=== PATIENT | female | born 1965 | race Caucasian/White ===

== ENCOUNTER → 2016-10-06 | Outpatient (REF) | payer BC | LOC: M SFHCPLAZ 14:49 | PROVIDERS: ATTEND Nurse Practitioner Family | DX: J44.9 Chronic obstructive pulmonary disease, unspecified (principal); Z72.0 Tobacco use; E55.9 Vitamin D deficiency, unspecified; Z53.9 Procedure and treatment not carried out, unspecified reason ==

== ENCOUNTER → 2016-11-01 | Outpatient (CLI) | payer BC | LOC: M LAB 10:58 | PROVIDERS: ATTEND Nurse Practitioner Family | DX: J44.9 Chronic obstructive pulmonary disease, unspecified (principal) ==

== ENCOUNTER → 2016-11-01 | Outpatient (CLI) | payer BC | LOC: M LAB 10:44 | PROVIDERS: ATTEND Psychiatry & Neurology Neurology | DX: J44.9 Chronic obstructive pulmonary disease, unspecified (principal); Z72.0 Tobacco use; E55.9 Vitamin D deficiency, unspecified ==

== ENCOUNTER 2017-03-22 10:53 | Emergency (ER) | payer OTHER, BC ==
[~2017-03-22] VITALS: Ht 152.4 cm; Wt 59.1 kg
[2017-03-22 10:55] VITALS: BP 114/74
[2017-03-22] MEDS ORDERED: DEPA1TAB3 PO (11:02)
[2017-03-22] MEDS ORDERED: REME45TA PO (11:02)
[2017-03-22] MEDS ORDERED: LORA10CA PO (11:02)
[2017-03-22] MEDS ORDERED: SING10TA32 PO (11:02)
[2017-03-22] MEDS ORDERED: ALBU17IN INH (11:02)
[2017-03-22] MEDS ORDERED: ACETAMINOPHEN 325 MG TAB PO ONE (11:30)
--- NOTE | 2017-03-22 12:00 | REP ---
LEFT WRIST, FOUR VIEWS: HISTORY: Trauma. COMPARISON: 08/31/2013 There is no acute fracture or dislocation. The joint spaces are normal in appearance. IMPRESSION: There is no acute fracture or dislocation. Signed by Lavon Hidalgo MD 03/22/2017 12:02 P
== END 2017-03-22 11:55 | disposition home or self-care (01) ==
LOC: M ED 10:53
DX: S63.502A Unspecified sprain of left wrist, initial encounter (principal); Y04.8XXA Assault by other bodily force, initial encounter; Y92.129 Unspecified place in nursing home as the place of occurrence of the external cause; Y93.F9 Activity, other caregiving; Y99.0 Civilian activity done for income or pay; J45.909 Unspecified asthma, uncomplicated; F17.210 Nicotine dependence, cigarettes, uncomplicated; Z79.899 Other long term (current) drug therapy

== ENCOUNTER → 2018-02-15 | Outpatient (REF) | payer BC ==
[2018-02-15 17:33] LABS: HEMATOCRIT 41.9 % (36.0-47.0); HEMOGLOBIN 14.1 g/dl (12.0-15.5); MEAN CORPUSCULAR HEMOGLOBIN 32.9 pg (27.0-33.0); MEAN CORPUSCULAR HGB CONC 33.7 g/dl (32.0-36.5); MEAN CORPUSCULAR VOLUME 97.9 fl (80.0-96.0); PLATELET COUNT, AUTOMATED 335 10^3/uL (150-450); RED BLOOD COUNT 4.28 10^6/uL (4.00-5.40); RED CELL DISTRIBUTION WIDTH 11.9 % (11.5-14.5); WHITE BLOOD COUNT 6.3 10^3/uL (4.0-10.0)
[2018-02-15 17:45] LABS: MAGNESIUM LEVEL 2.1 MG/DL (1.8-2.4)
[2018-02-15 18:04] LABS: TOTAL 25(OH) VITAMIN D 50.1 NG/ML (30.0-100.0); VITAMIN B12 LEVEL 490 PG/ML
[2018-02-15 18:05] LABS: FOLATE 14.2 NG/ML
== END ==
LOC: M SFHCPLAZ 14:24
DX: K21.9 Gastro-esophageal reflux disease without esophagitis (principal); E55.9 Vitamin D deficiency, unspecified

== ENCOUNTER → 2018-05-01 | Outpatient (REF) | payer BC ==
[2018-05-01 16:26] LABS: TOTAL 25(OH) VITAMIN D 33.4 NG/ML (30.0-100.0)
== END ==
LOC: M SFHCPLAZ 13:40
DX: E55.9 Vitamin D deficiency, unspecified (principal)
CPT/HCPCS: 82306

== ENCOUNTER → 2018-07-06 | Outpatient (REF) | payer BC ==
[2018-07-07 12:48] LABS: HIV 1&2 SCREEN CENTAUR NEGATIVE (NEGATIVE)
[2018-07-07 12:48] LABS: HEPATITIS C VIRUS ABY INDEX 0.1 INDEX (<0.8)
== END ==
LOC: M SFHCPLAZ 11:48
DX: Z11.3 Encounter for screening for infections with a predominantly sexual mode of transmission (principal)
CPT/HCPCS: 86803

== ENCOUNTER → 2018-07-06 | Outpatient (REF) | payer BC ==
[2018-07-06 16:41] LABS: CHLAMYDIA DNA AMPLIFICATION NEGATIVE (NEGATIVE); GC DNA AMPLIFICATION NEGATIVE (NEGATIVE)
[2018-07-11 14:17] LABS: HPV HYBRID CAPTURE II Negative (Negative)
== END ==
LOC: M SFHCPLAZ 13:36
DX: Z12.4 Encounter for screening for malignant neoplasm of cervix (principal); A59.01 Trichomonal vulvovaginitis; R87.610 Atypical squamous cells of undetermined significance on cytologic smear of cervix (ASC-US); Z11.3 Encounter for screening for infections with a predominantly sexual mode of transmission
CPT/HCPCS: 87591

== ENCOUNTER → 2018-11-16 | Outpatient (REF) | payer BC ==
[~2018-11-16] MED LIST: ALBU17IN INH; DEPA1TAB3 PO; LORA10CA PO; REME45TA PO; SING10TA32 PO
[2018-11-16 19:33] LABS: ALBUMIN 3.8 GM/DL (3.2-5.2); ALT/SGPT 22 U/L (12-78); BILIRUBIN,TOTAL 0.1 MG/DL (0.2-1.0); BLOOD UREA NITROGEN 18 MG/DL (7-18); CALCIUM LEVEL 8.8 MG/DL (8.5-10.1); CARBON DIOXIDE LEVEL 30 MEQ/L (21-32); CHLORIDE LEVEL 109 MEQ/L (98-107); CREATININE FOR GFR 0.74 MG/DL (0.55-1.30); GLOMERULAR FILTRATION RATE > 60.0 (>51); GLUCOSE, FASTING 75 MG/DL (70-100); POTASSIUM SERUM 4.5 MEQ/L (3.5-5.1); SODIUM LEVEL 143 MEQ/L (136-145); TOTAL PROTEIN 6.8 GM/DL (6.4-8.2)
[2018-11-16 19:38] LABS: TOTAL 25(OH) VITAMIN D 46.4 NG/ML (30.0-100.0)
== END ==
LOC: M SFHCPLAZ 15:49
PROVIDERS: ATTEND Nurse Practitioner Family
DX: J44.9 Chronic obstructive pulmonary disease, unspecified (principal); E55.9 Vitamin D deficiency, unspecified

== ENCOUNTER 2019-09-04 10:49 | Emergency (ER) | payer OTHER, BC ==
[~2019-09-04] VITALS: Ht 152.4 cm; Wt 59.8 kg
[2019-09-04 10:49] VITALS: BP 125/74
--- NOTE | 2019-09-04 14:10 | REP ---
Clinical: Trauma. Fall. Technique: Single AP view of the pelvis. Findings: Age-related changes noted. No acute fracture or dislocation. Impression: No acute fracture dislocation. Electronically Signed by Salazar Blancas MD 09/04/2019 02:02 P
--- NOTE | 2019-09-04 14:11 | REP ---
Clinical: Fall. Pain. Technique: AP, lateral, bilateral oblique and coned-down views of the lumbosacral spine. Findings: Alignment and lordosis maintained. Vertebral bodies are intact. No acute fracture / compression injury or subluxation. Minimal disc space narrowing at L5-S1 noted. Impression: No acute fracture / compression injury or subluxation. Electronically Signed by Salazar Blancas MD 09/04/2019 02:03 P
[2019-09-04] MEDS ORDERED: NAPR-837 PO (14:18)
== END 2019-09-04 14:28 | disposition home or self-care (01) ==
LOC: M ED 10:49
DX: S30.0XXA Contusion of lower back and pelvis, initial encounter (principal); S33.9XXA Sprain of unspecified parts of lumbar spine and pelvis, initial encounter; W00.0XXA Fall on same level due to ice and snow, initial encounter; Y92.89 Other specified places as the place of occurrence of the external cause; Y99.0 Civilian activity done for income or pay; J45.909 Unspecified asthma, uncomplicated; Z78.0 Asymptomatic menopausal state; Z79.899 Other long term (current) drug therapy

== ENCOUNTER → 2019-11-19 | Outpatient (REF) ==
[~2019-11-19] MED LIST changes: +NAPR-837 PO
== END ==
LOC: M LAB 14:47
PROVIDERS: ATTEND Nurse Practitioner Adult Health
DX: Z00.00 Encounter for general adult medical examination without abnormal findings (principal)

== ENCOUNTER → 2020-01-31 | Outpatient (REF) | payer BC ==
[2020-01-31 17:05] LABS: BASO % 0.3 % (0.0-1.0); EOS # 0.1 10^3/uL (0.0-0.5); EOS % 0.6 % (0.0-3.0); HEMATOCRIT 45.4 % (36.0-47.0); HEMOGLOBIN 15.2 g/dl (12.0-15.5); LYMPH # 2.6 10^3/uL (1.5-5.0); LYMPH % 29.4 % (24.0-44.0); MEAN CORPUSCULAR HEMOGLOBIN 32.1 pg (27.0-33.0); MEAN CORPUSCULAR HGB CONC 33.5 g/dl (32.0-36.5); MEAN CORPUSCULAR VOLUME 95.8 fl (80.0-96.0); MONO # 0.6 10^3/uL (0.0-0.8); MONO % 7.2 % (0.0-5.0); NEUTROPHILS # 5.5 10^3/uL (1.5-8.5); NEUTROPHILS % 62.3 % (36.0-66.0); PLATELET COUNT, AUTOMATED 322 10^3/uL (150-450); RED BLOOD COUNT 4.74 10^6/uL (4.00-5.40); WHITE BLOOD COUNT 8.8 10^3/uL (4.0-10.0)
[2020-01-31 18:03] LABS: ALBUMIN 3.9 GM/DL (3.2-5.2); ALT/SGPT 24 U/L (12-78); BILIRUBIN,TOTAL 0.3 MG/DL (0.2-1.0); BLOOD UREA NITROGEN 10 MG/DL (7-18); CALCIUM LEVEL 9.6 MG/DL (8.5-10.1); CARBON DIOXIDE LEVEL 29 MEQ/L (21-32); CHLORIDE LEVEL 110 MEQ/L (98-107); CREATININE FOR GFR 0.72 MG/DL (0.55-1.30); FREE T4 1.09 NG/DL (0.76-1.46); GLOMERULAR FILTRATION RATE > 60.0 (>51); GLUCOSE, FASTING 88 MG/DL (70-100); POTASSIUM SERUM 4.7 MEQ/L (3.5-5.1); SODIUM LEVEL 144 MEQ/L (136-145); THYROID STIMULATING HORMONE 0.433 uIU/ML (0.358-3.740); TOTAL 25(OH) VITAMIN D 32.2 NG/ML (30.0-100.0); TOTAL PROTEIN 7.1 GM/DL (6.4-8.2); VALPROIC ACID (DEPAKOTE) < 3.0 UG/ML (50.0-100.0)
== END ==
LOC: M SFHCPLAZ 15:36
PROVIDERS: ATTEND Nurse Practitioner Family
DX: J44.9 Chronic obstructive pulmonary disease, unspecified (principal); F32.9 Major depressive disorder, single episode, unspecified; G43.009 Migraine without aura, not intractable, without status migrainosus; E55.9 Vitamin D deficiency, unspecified; L73.2 Hidradenitis suppurativa

== ENCOUNTER → 2020-03-17 | Outpatient (CLI) | payer BC ==
[2020-03-17 19:23] LABS: BASO % 0.4 % (0.0-1.0); EOS # 0.1 10^3/uL (0.0-0.5); EOS % 1.1 % (0.0-3.0); HEMATOCRIT 44.1 % (36.0-47.0); HEMOGLOBIN 14.7 g/dl (12.0-15.5); LYMPH % 25.4 % (24.0-44.0); MEAN CORPUSCULAR HEMOGLOBIN 32.3 pg (27.0-33.0); MEAN CORPUSCULAR HGB CONC 33.3 g/dl (32.0-36.5); MEAN CORPUSCULAR VOLUME 96.9 fl (80.0-96.0); MONO # 0.5 10^3/uL (0.0-0.8); MONO % 5.7 % (0.0-5.0); NEUTROPHILS # 5.3 10^3/uL (1.5-8.5); NEUTROPHILS % 67.1 % (36.0-66.0); PLATELET COUNT, AUTOMATED 306 10^3/uL (150-450); RED BLOOD COUNT 4.55 10^6/uL (4.00-5.40); WHITE BLOOD COUNT 7.9 10^3/uL (4.0-10.0)
[2020-03-17 20:08] LABS: ALBUMIN 3.8 GM/DL (3.2-5.2); ALT/SGPT 22 U/L (12-78); BILIRUBIN,TOTAL 0.3 MG/DL (0.2-1.0); BLOOD UREA NITROGEN 12 MG/DL (7-18); CALCIUM LEVEL 9.2 MG/DL (8.5-10.1); CARBON DIOXIDE LEVEL 32 MEQ/L (21-32); CHLORIDE LEVEL 109 MEQ/L (98-107); FREE T4 0.87 NG/DL (0.76-1.46); GLOMERULAR FILTRATION RATE > 60.0 (>51); GLUCOSE, FASTING 83 MG/DL (70-100); LIPASE 75 U/L (73-393); POTASSIUM SERUM 4.1 MEQ/L (3.5-5.1); SODIUM LEVEL 143 MEQ/L (136-145); THYROID STIMULATING HORMONE 0.475 uIU/ML (0.358-3.740); TOTAL PROTEIN 6.6 GM/DL (6.4-8.2)
== END ==
LOC: M WUC 15:43
PROVIDERS: ATTEND Physician Assistant
DX: R10.9 Unspecified abdominal pain (principal)

== ENCOUNTER → 2020-03-21 | Outpatient (CLI) | payer BC ==
[~2020-03-21] MED LIST changes: +GASTROGRAFIN SOLUTION 30ML (Q9963) As Ordered ONE; +ISOVUE-370 76% 100ML VIAL As Ordered ONE
--- NOTE | 2020-04-22 09:55 | REP ---
CONTRAST-ENHANCED CT OF THE ABDOMEN AND PELVIS: HISTORY: Generalized abdominal pain and tenderness. TECHNIQUE: Axial contrast-enhanced images from the lung bases to the pubic symphysis using oral (per protocol) and 100 cc Isovue 370 intravenous contrast material with coronal and sagittal reformations. COMPARISON: None. FINDINGS: Lung bases suggest mild/moderate emphysematous changes and linear scarring at the right anterior base. The visualized heart and pericardium are grossly normal. The liver, spleen, pancreas, gallbladder, bilateral adrenal glands and kidneys are normal. The enteric system demonstrate mild mucosal thickening to the ascending and proximal transverse colon raising the possibility of a mild colitis. There is no evidence for bowel obstruction or further acute inflammatory process. The pelvis demonstrates normal bladder and age appropriate uterus/adnexa. No pelvic fluid or ascites. No free air. No adenopathy. The abdominal aorta is without aneurysm or dissection. Musculoskeletal structures are intact and without acute osseous abnormality. IMPRESSION: 1. Cannot exclude a mild colitis involving the ascending and proximal transverse colon. 2. No further acute abdominopelvic pathology appreciated. No ascites. No free air. No adenopathy. MTDD
== END ==
LOC: M RAD 12:10
PROVIDERS: ATTEND Nurse Practitioner Family
DX: R10.817 Generalized abdominal tenderness (principal)
CPT/HCPCS: 74177; Q9963; Q9967

== ENCOUNTER 2020-09-02 12:07 | Day surgery (SDC) | payer BC ==
[~2020-09-02] VITALS: Ht 152.4 cm; Wt 61.7 kg
[~2020-09-02 12:07] MED LIST changes: +BUPR300T92 PO; -GASTROGRAFIN SOLUTION 30ML (Q9963) As Ordered ONE; -ISOVUE-370 76% 100ML VIAL As Ordered ONE; +LIDOCAINE 2% 100MG/5ML SDV (FOR ANES.) As Ordered ONE; +LORA-243 PO; +MIRT1TAB17 PO; +MONT10TA10 PO; +NS 1,000 ML IV ONE; +OMEP1CAP73 PO; +VENTAER INH; +VITA50005 PO; +fentaNYL 100 MCG/2 ML INJECTION (J3010) As Ordered ONE; +propofoL 500 MG/50 ML VIAL As Ordered ONE
[2020-09-02] MEDS ORDERED: PHENYLephrine 500MCG 5ML (100MCG/ML) SYRINGE As Ordered ONE ×2 (13:29→14:12)
[2020-09-02] MEDS ORDERED: ELEVIEW SUBMUCOSAL INJ 10ML AMP As Ordered ONE (13:39)
[2020-09-02] MEDS ORDERED: propofoL 200 MG/20 ML VIAL As Ordered ONE (14:12)
--- NOTE | 2020-09-02 14:38 | ROOR ---
Patient Name: Leora Polanco Procedure Date: 09/02/2020 1:10 PM Date of : 1965 Age: 55 Room: [facility] Gender: Female Note Status: Finalized Procedure: Upper GI endoscopy Indications: Dysphagia, Dyspepsia Providers: Edwar Fitzgerald MD Referring MD: Zarina Martínez NP Requesting Provider: Medicines: Monitored Anesthesia Care Complications: No immediate complications. Procedure: Pre-Anesthesia Assessment: - Prior to the procedure, a History and Physical was performed, and patient medications and allergies were reviewed. The patient is competent. The risks and benefits of the procedure and the sedation options and risks were discussed with the patient. All questions were answered and informed consent was obtained. Patient identification and proposed procedure were verified by the physician, the nurse and the anesthesiologist in the procedure room. Mental Status Examination: alert and oriented. Airway Examination: normal oropharyngeal airway and neck mobility. Respiratory Examination: clear to auscultation. CV Examination: normal. Prophylactic Antibiotics: The patient does not require prophylactic antibiotics. Prior Anticoagulants: The patient has taken no previous anticoagulant or antiplatelet agents. ASA Grade Assessment: II - A patient with mild systemic disease. After reviewing the risks and benefits, the patient was deemed in satisfactory condition to undergo the procedure. The anesthesia plan was to use monitored anesthesia care (MAC). Immediately prior to administration of medications, the patient was re-assessed for adequacy to receive sedatives. The heart rate, respiratory rate, oxygen saturations, blood pressure, adequacy of pulmonary ventilation, and response to care were monitored throughout the procedure. The physical status of the patient was re-assessed after the procedure. The Endoscope was introduced through the mouth, and advanced to the second part of duodenum. The upper GI endoscopy was accomplished without difficulty. The patient tolerated the procedure well. Findings: The examined esophagus was normal. The Z-line was regular and was found 38 cm from the incisors. Scattered moderate inflammation characterized by erosions, erythema, friability and granularity was found in the gastric body and in the gastric antrum. Biopsies were taken with a cold forceps for histology. Biopsies were taken with a cold forceps for Helicobacter pylori testing. Verification of patient identification for the specimen was done by the physician and nurse using the patient's name, date and medical record number. Estimated blood loss was minimal. The duodenal bulb and second portion of the duodenum were normal. Impression: - Normal esophagus. - Z-line regular, 38 cm from the incisors. - Gastritis. Biopsied. - Normal duodenal bulb and second portion of the duodenum. Recommendation: - Patient has a contact number available for emergencies. The signs and symptoms of potential delayed complications were discussed with the patient. Return to normal activities tomorrow. Written discharge instructions were provided to the patient. - Clear liquid diet for 1 day, then advance as tolerated to high fiber diet. - Continue present medications. - Await pathology results. - Use Pepcid (famotidine) 20 mg PO Twice daily ( take car inspector on empty stomach and at bedtime) for 8 weeks. - Follow an antireflux regimen. - Telephone GI clinic for pathology results in 2 weeks. - Return to primary care physician. - Follow the recommendations as per the other procedure note. Procedure Code(s): --- Professional --- 02901, Esophagogastroduodenoscopy, flexible, transoral; with biopsy, single or multiple Diagnosis Code(s): --- Professional --- K29.70, Gastritis, unspecified, without bleeding R13.10, Dysphagia, unspecified R10.13, Epigastric pain CPT copyright 2019 [employer]. All rights reserved. The codes documented in this report are preliminary and upon rubber tubing backer review may be revised to meet current compliance requirements. Edwar Fitzgerald MD Edwar Fitzgerald MD 09/02/2020 2:37:36 PM Electronically signed by Edwar Fitzgerald MD Number of Addenda: 0 Note Initiated On: 09/02/2020 1:10 PM Estimated Blood Loss: Estimated blood loss: none.
--- NOTE | 2020-09-02 14:44 | ROOR ---
Patient Name: Leora Polanco Procedure Date: 09/02/2020 1:11 PM Date of : 1965 Age: 55 Room: [facility] Gender: Female Note Status: Finalized Procedure: Colonoscopy Indications: High risk colon cancer surveillance: Personal history of colonic polyps Providers: Edwar Fitzgerald MD Referring MD: Zarina Martínez NP Requesting Provider: Medicines: Monitored Anesthesia Care Complications: No immediate complications. Procedure: Pre-Anesthesia Assessment: - Prior to the procedure, a History and Physical was performed, and patient medications and allergies were reviewed. The patient is competent. The risks and benefits of the procedure and the sedation options and risks were discussed with the patient. All questions were answered and informed consent was obtained. Patient identification and proposed procedure were verified by the physician, the nurse and the anesthesiologist in the procedure room. Mental Status Examination: alert and oriented. Airway Examination: normal oropharyngeal airway and neck mobility. Respiratory Examination: clear to auscultation. CV Examination: normal. Prophylactic Antibiotics: The patient does not require prophylactic antibiotics. Prior Anticoagulants: The patient has taken no previous anticoagulant or antiplatelet agents. ASA Grade Assessment: II - A patient with mild systemic disease. After reviewing the risks and benefits, the patient was deemed in satisfactory condition to undergo the procedure. The anesthesia plan was to use monitored anesthesia care (MAC). Immediately prior to administration of medications, the patient was re-assessed for adequacy to receive sedatives. The heart rate, respiratory rate, oxygen saturations, blood pressure, adequacy of pulmonary ventilation, and response to care were monitored throughout the procedure. The physical status of the patient was re-assessed after the procedure. The Colonoscope was introduced through the anus and advanced to the terminal ileum, with identification of the appendiceal orifice and IC valve. The colonoscopy was performed without difficulty. The patient tolerated the procedure well. The quality of the bowel preparation was good. The terminal ileum, ileocecal valve, appendiceal orifice, and rectum were photographed. Scope insertion time was 3 minutes. Scope withdrawal time was 20 minutes. The total duration of the procedure was 25 minutes. Findings: The perianal and digital rectal examinations were normal. The terminal ileum appeared normal. A 25 mm polyp was found in the ascending colon. The polyp was carpet-like, flat and sessile. Preparations were made for mucosal resection. Chromoscopy with methylene blue was done to lori the borders of the lesion. 4 mL of Eleview was injected with partial lift of the lesion from the muscularis propria. Piecemeal mucosal resection using a snare with suction (via the working channel) retrieval was performed. A 25 mm area was resected. Resection and retrieval were complete. There was no bleeding at the end of the procedure. Verification of patient identification for the specimen was done by the physician and nurse using the patient's name, date and medical record number. Estimated blood loss was minimal. To close a defect after mucosal resection, two hemostatic clips were successfully placed. There was no bleeding at the end of the procedure. A 15 mm polyp was found in the proximal transverse colon. The polyp was flat and sessile. Polypectomy was attempted, initially using a hot snare. Polyp resection was incomplete with this device. This intervention then required a different device and polypectomy technique. The polyp was removed with a hot biopsy forceps. Resection and retrieval were complete. To close a defect after polypectomy, one hemostatic clip was successfully placed. There was no bleeding at the end of the procedure. Multiple small and large-mouthed diverticula were found in the sigmoid colon. There was narrowing of the colon in association with the diverticular opening. There was evidence of diverticular spasm. There was no evidence of diverticular bleeding. Non-bleeding external and internal hemorrhoids were found during retroflexion. The hemorrhoids were medium-sized. Impression: - The examined portion of the ileum was normal. - One 25 mm polyp in the ascending colon, removed with mucosal resection. Resected and retrieved. Clips were placed. - One 15 mm polyp in the proximal transverse colon, removed with a hot biopsy forceps. Resected and retrieved. Clip was placed. - Moderate diverticulosis in the sigmoid colon. There was narrowing of the colon in association with the diverticular opening. There was evidence of diverticular spasm. There was no evidence of diverticular bleeding. - Non-bleeding external and internal hemorrhoids. - Mucosal resection was performed. Resection and retrieval were complete. Recommendation: - Patient has a contact number available for emergencies. The signs and symptoms of potential delayed complications were discussed with the patient. Return to normal activities tomorrow. Written discharge instructions were provided to the patient. - Clear liquid diet for 1 day, then advance as tolerated to high fiber diet. - Continue present medications. - Miralax 1 capful (17 grams) in 8 ounces of water PO daily. - Await pathology results. - Repeat colonoscopy in 1 year for surveillance based on pathology results. - Telephone GI clinic for pathology results in 2 weeks. - Return to primary care physician. Procedure Code(s): --- Professional --- 54657, Colonoscopy, flexible; with endoscopic mucosal resection 91402, 59, Colonoscopy, flexible; with removal of tumor(s), polyp(s), or other lesion(s) by hot biopsy forceps Diagnosis Code(s): --- Professional --- Z86.010, Personal history of colonic polyps K64.8, Other hemorrhoids K63.5, Polyp of colon K57.30, Diverticulosis of large intestine without perforation or abscess without bleeding CPT copyright 2019 [employer] [place] [employer]. All rights reserved. The codes documented in this report are preliminary and upon product development chemist review may be revised to meet current compliance requirements. Edwar Fitzgerald MD Edwar Fitzgerald MD 09/02/2020 2:44:33 PM Electronically signed by Edwar Fitzgerald MD Number of Addenda: 0 Note Initiated On: 09/02/2020 1:11 PM Estimated Blood Loss: Estimated blood loss was minimal.
[2020-09-02 14:45] VITALS: BP 133/69
== END 2020-09-02 15:16 | disposition home or self-care (01) ==
LOC: M OPP 12:07
PROVIDERS: ATTEND Internal Medicine Gastroenterology
DX: Z12.11 Encounter for screening for malignant neoplasm of colon (principal); Z86.010 Personal history of colon polyps; R13.10 Dysphagia, unspecified; R10.13 Epigastric pain; D12.2 Benign neoplasm of ascending colon; D12.3 Benign neoplasm of transverse colon; K57.30 Diverticulosis of large intestine without perforation or abscess without bleeding; K64.8 Other hemorrhoids; D13.1 Benign neoplasm of stomach; K29.70 Gastritis, unspecified, without bleeding; F32.9 Major depressive disorder, single episode, unspecified; G43.909 Migraine, unspecified, not intractable, without status migrainosus; J44.9 Chronic obstructive pulmonary disease, unspecified; F17.210 Nicotine dependence, cigarettes, uncomplicated; Z79.899 Other long term (current) drug therapy; Z80.0 Family history of malignant neoplasm of digestive organs; Z80.8 Family history of malignant neoplasm of other organs or systems; Z83.3 Family history of diabetes mellitus
CPT/HCPCS: 43239; 45384; 45390; 88305; J2370; J3010

== ENCOUNTER → 2021-04-24 | Outpatient (REF) ==
[~2021-04-24] MED LIST changes: +ERGO500029 PO; -LIDOCAINE 2% 100MG/5ML SDV (FOR ANES.) As Ordered ONE; -NS 1,000 ML IV ONE; -VITA50005 PO; -fentaNYL 100 MCG/2 ML INJECTION (J3010) As Ordered ONE; -propofoL 500 MG/50 ML VIAL As Ordered ONE
== END ==
LOC: M EMPSSV 14:03
PROVIDERS: ATTEND Family Medicine
DX: Z11.52 Encounter for screening for COVID-19 (principal)

== ENCOUNTER → 2021-06-03 | Outpatient (REF) ==
[2021-06-03 14:31] LABS: RSV AMPLIFICATION NEGATIVE (NEGATIVE)
== END ==
LOC: M LABSMTC 13:02
PROVIDERS: ATTEND Family Medicine
DX: Z11.52 Encounter for screening for COVID-19 (principal); Z20.822 Contact with and (suspected) exposure to COVID-19

== ENCOUNTER → 2021-08-22 | Outpatient (REF) ==
[~2021-08-22] MED LIST changes: -MONT10TA10 PO; +MONT10TA97 PO
== END ==
LOC: M LABSMTC 09:50
PROVIDERS: ATTEND Family Medicine
DX: Z20.822 Contact with and (suspected) exposure to COVID-19 (principal)

== ENCOUNTER → 2021-08-31 | Outpatient (CLI) | payer BC ==
[2021-08-31 13:39] LABS: BASO % 0.5 % (0.0-1.0); EOS # 0.1 10^3/uL (0.0-0.5); EOS % 1.7 % (0.0-3.0); HEMATOCRIT 45.5 % (36.0-47.0); HEMOGLOBIN 15.1 g/dl (12.0-15.5); LYMPH # 2.3 10^3/uL (1.5-5.0); LYMPH % 37.5 % (24.0-44.0); MEAN CORPUSCULAR HEMOGLOBIN 31.7 pg (27.0-33.0); MEAN CORPUSCULAR HGB CONC 33.2 g/dl (32.0-36.5); MEAN CORPUSCULAR VOLUME 95.4 fl (80.0-96.0); MONO # 0.4 10^3/uL (0.0-0.8); MONO % 6.7 % (2.0-8.0); NEUTROPHILS # 3.2 10^3/uL (1.5-8.5); NEUTROPHILS % 53.1 % (36.0-66.0); PLATELET COUNT, AUTOMATED 292 10^3/uL (150-450); RED BLOOD COUNT 4.77 10^6/uL (4.00-5.40)
[2021-08-31 14:19] LABS: ALBUMIN 3.8 GM/DL (3.2-5.2); ALT/SGPT 23 U/L (12-78); BILIRUBIN,TOTAL 0.4 MG/DL (0.2-1.0); BLOOD UREA NITROGEN 15 MG/DL (7-18); CALCIUM LEVEL 9.5 MG/DL (8.5-10.1); CARBON DIOXIDE LEVEL 28 MEQ/L (21-32); CHLORIDE LEVEL 111 MEQ/L (98-107); CHOLESTEROL LEVEL 218 MG/DL (<200); CHOLESTEROL RISK RATIO 4.638 (<5); CREATININE FOR GFR 0.69 MG/DL (0.55-1.30); GLOMERULAR FILTRATION RATE > 60.0 (>51); GLUCOSE, FASTING 96 MG/DL (70-100); HDL CHOLESTEROL 47 MG/DL (>40); LDL CHOLESTEROL 149 MG/DL (<100); NON-HDL-C 171 MG/DL; POTASSIUM SERUM 4.6 MEQ/L (3.5-5.1); SODIUM LEVEL 145 MEQ/L (136-145); TOTAL PROTEIN 6.7 GM/DL (6.4-8.2); TRIGLYCERIDES LEVEL 110 MG/DL (<150)
[2021-08-31 15:05] LABS: HEMOGLOBIN A1c 5.4 %
[2021-08-31 15:22] LABS: TOTAL 25(OH) VITAMIN D 28.2 NG/ML (30.0-100.0)
== END ==
LOC: M PLAIMG 10:12
PROVIDERS: ATTEND Nurse Practitioner Family
DX: M25.562 Pain in left knee (principal); E78.5 Hyperlipidemia, unspecified; E55.9 Vitamin D deficiency, unspecified

== ENCOUNTER → 2021-09-09 | Outpatient (REF) | payer BC | LOC: M SFHCPLAZ 17:04 | PROVIDERS: ATTEND Nurse Practitioner Family | DX: Z12.4 Encounter for screening for malignant neoplasm of cervix (principal) | CPT/HCPCS: 87624; G0123 ==

== ENCOUNTER → 2021-09-14 | Outpatient (CLI) | payer BC | LOC: M SOG 13:20 | PROVIDERS: ATTEND Orthopaedic Surgery Adult Reconstructive Orthopaedic Surgery | DX: M25.561 Pain in right knee (principal) ==

== ENCOUNTER → 2021-10-15 | Outpatient (CLI) | payer BC | LOC: M WHC 12:48 | PROVIDERS: ATTEND Nurse Practitioner Family | DX: Z12.31 Encounter for screening mammogram for malignant neoplasm of breast (principal); Z78.0 Asymptomatic menopausal state; Z80.3 Family history of malignant neoplasm of breast; Z85.9 Personal history of malignant neoplasm, unspecified ==

== ENCOUNTER → 2021-10-20 | Outpatient (CLI) | payer BC | LOC: M PLAIMG 14:32 | PROVIDERS: ATTEND Orthopaedic Surgery Adult Reconstructive Orthopaedic Surgery | DX: M25.462 Effusion, left knee (principal); M94.262 Chondromalacia, left knee ==

== ENCOUNTER → 2022-08-20 | Outpatient (CLI) | payer BC | LOC: M SOG 08:36 | PROVIDERS: ATTEND Orthopaedic Surgery Adult Reconstructive Orthopaedic Surgery | DX: M94.262 Chondromalacia, left knee (principal) ==

== ENCOUNTER 2022-10-25 11:02 | Emergency (ER) | payer BC ==
[~2022-10-25] VITALS: Ht 152.4 cm; Wt 55.0 kg
[~2022-10-25 11:02] MED LIST changes: +MONT-5 PO; -SING10TA32 PO
[2022-10-25] MEDS ORDERED: FLUTISP (11:14)
[2022-10-25] MEDS ORDERED: REME45TA2 PO (11:14)
[2022-10-25 13:11] LABS: RSV AMPLIFICATION NEGATIVE (NEGATIVE)
[2022-10-25] MEDS ORDERED: DOXY-443 PO (13:36)
[2022-10-25] MEDS ORDERED: CLOT10TR PO (13:36)
[2022-10-25 14:07] VITALS: BP 122/78
== END 2022-10-25 14:12 | disposition home or self-care (01) ==
LOC: M ED 11:02
DX: H65.02 Acute serous otitis media, left ear (principal); B37.0 Candidal stomatitis; J44.9 Chronic obstructive pulmonary disease, unspecified; K21.9 Gastro-esophageal reflux disease without esophagitis; F32.A Depression, unspecified; E55.9 Vitamin D deficiency, unspecified; G43.909 Migraine, unspecified, not intractable, without status migrainosus; F17.200 Nicotine dependence, unspecified, uncomplicated; Z79.899 Other long term (current) drug therapy; Z79.51 Long term (current) use of inhaled steroids

== ENCOUNTER 2022-11-09 17:22 | Emergency (ER) | payer BC ==
[~2022-11-09] VITALS: Ht 152.4 cm; Wt 54.8 kg
[~2022-11-09 17:22] MED LIST changes: +CLOT10TR PO; +DOXY-443 PO; +FLUT50SP17; +REME45TA2 PO
[2022-11-09 18:18] LABS: BASO % 0.4 % (0.0-1.0); EOS # 0.1 10^3/uL (0.0-0.5); EOS % 1.1 % (0.0-3.0); HEMATOCRIT 43.1 % (36.0-47.0); LYMPH % 25.2 % (24.0-44.0); MEAN CORPUSCULAR HEMOGLOBIN 31.4 pg (27.0-33.0); MEAN CORPUSCULAR HGB CONC 32.5 g/dl (32.0-36.5); MEAN CORPUSCULAR VOLUME 96.6 fl (80.0-96.0); MONO # 0.5 10^3/uL (0.0-0.8); MONO % 6.8 % (2.0-8.0); NEUTROPHILS # 5.3 10^3/uL (1.5-8.5); NEUTROPHILS % 66.2 % (36.0-66.0); PLATELET COUNT, AUTOMATED 335 10^3/uL (150-450); RED BLOOD COUNT 4.46 10^6/uL (4.00-5.40); WHITE BLOOD COUNT 7.9 10^3/uL (4.0-10.0)
[2022-11-09] MEDS ORDERED: ASPIRIN 81MG CHEW TABLET PO ONE (18:30)
[2022-11-09] MEDS: NITROGLYCERIN 0.4MG SUBL TABLET SL PRN ×3 (18:39→18:52)
[2022-11-09 18:43] LABS: CK-MB VALUE MASS 1.1 NG/ML (<3.6)
[2022-11-09 18:45] LABS: LIPASE 30 U/L (12-53)
[2022-11-09 18:46] LABS: CPK CREATINE PHOSPHOKINASE 98 U/L (34-145); MB/CK RELATIVE INDEX 1.12 (< OR =4)
[2022-11-09 18:47] LABS: ALBUMIN 3.8 G/DL (3.2-5.2); ALKALINE PHOSPHATASE 115 U/L (46-116); ALT/SGPT 20 U/L (7.0-40); AST/SGOT < 8 U/L (<34); BILIRUBIN,DIRECT < 0.1 MG/DL (<0.4); BILIRUBIN,TOTAL 0.2 MG/DL (0.3-1.2); BLOOD UREA NITROGEN 16 MG/DL (9-23); CALCIUM LEVEL 9.2 MG/DL (8.5-10.1); CARBON DIOXIDE LEVEL 28 MMOL/L (20-31); CHLORIDE LEVEL 109 MMOL/L (98-107); CREATININE FOR GFR 0.58 MG/DL (0.55-1.30); GLOMERULAR FILTRATION RATE > 60.0 (>51); GLUCOSE, FASTING 94 MG/DL (60-100); POTASSIUM SERUM 4.2 MMOL/L (3.5-5.1); SODIUM LEVEL 143 MMOL/L (136-145); TOTAL PROTEIN 6.5 G/DL (5.7-8.2)
[2022-11-09 18:48] LABS: FREE T4 0.98 NG/DL (0.89-1.76)
[2022-11-09 18:52] VITALS: BP 110/72
[2022-11-09 18:58] LABS: BASO % 0.4 % (0.0-1.0); EOS # 0.1 10^3/uL (0.0-0.5); EOS % 1.1 % (0.0-3.0); HEMATOCRIT 39.3 % (36.0-47.0); HEMOGLOBIN 13.5 g/dl (12.0-15.5); LYMPH % 26.3 % (24.0-44.0); MEAN CORPUSCULAR HEMOGLOBIN 32.4 pg (27.0-33.0); MEAN CORPUSCULAR HGB CONC 34.4 g/dl (32.0-36.5); MEAN CORPUSCULAR VOLUME 94.2 fl (80.0-96.0); MONO # 0.5 10^3/uL (0.0-0.8); NEUTROPHILS # 4.9 10^3/uL (1.5-8.5); NEUTROPHILS % 65.9 % (36.0-66.0); PLATELET COUNT, AUTOMATED 303 10^3/uL (150-450); RED BLOOD COUNT 4.17 10^6/uL (4.00-5.40); WHITE BLOOD COUNT 7.5 10^3/uL (4.0-10.0)
[2022-11-09 19:22] LABS: CK-MB VALUE MASS 1.2 NG/ML (<3.6)
[2022-11-09 19:23] LABS: INR 0.91; MB/CK RELATIVE INDEX 1.37 (< OR =4); PROTHROMBIN TIME 12.5 SECONDS (12.5-14.5)
[2022-11-09 19:24] LABS: PARTIAL THROMBOPLASTIN TIME 33.7 SECONDS (24.8-34.2)
[2022-11-09 19:27] LABS: D-DIMER QUANT 905.29 ng/ml (<500)
[2022-11-09] MEDS ORDERED: ISOVUE-370 76% 100ML VIAL As Ordered ONE (19:44)
[2022-11-09] MEDS ORDERED: MORPHINE 4 MG/ML 1ML VIAL IV ONE (20:05)
[2022-11-09] MEDS ORDERED: ONDANSETRON 4MG 2ML VIAL IV ONE (20:05)
[2022-11-09] MEDS ORDERED: KETOROLAC 30 MG/ML 1ML VIAL IV ONE (20:25)
[2022-11-09 21:57] VITALS: BP 117/75
== END 2022-11-09 21:59 | disposition home or self-care (01) ==
LOC: M ED 17:22
DX: R91.8 Other nonspecific abnormal finding of lung field (principal); E78.5 Hyperlipidemia, unspecified; J45.909 Unspecified asthma, uncomplicated; F17.200 Nicotine dependence, unspecified, uncomplicated; Z79.51 Long term (current) use of inhaled steroids; Z79.899 Other long term (current) drug therapy
CPT/HCPCS: 71046; 71275; 80048; 80076; 82550; 82553; 83690; 83880; 84439; 84443; 84484; 85025; 85379; 85610; 85730; 93005; 93041; 94760; 96374; 96375; 99285; J1885; Q9967

== ENCOUNTER 2022-12-01 06:57 | Day surgery (SDC) | payer BC ==
[~2022-12-01] VITALS: Ht 152.4 cm; Wt 53.9 kg
[~2022-12-01 06:57] MED LIST changes: -FLUT50SP17; +FLUT50SP17 INH
[2022-12-01] MEDS ORDERED: GLYCOPYRROLATE INJ 0.2 MG/ML 2 ML VIAL As Ordered ONE (07:56)
[2022-12-01] MEDS ORDERED: LIDOCAINE 2% 100MG/5ML SDV (FOR ANES.) As Ordered ONE (07:56)
[2022-12-01] MEDS ORDERED: fentaNYL 100 MCG/2 ML INJECTION As Ordered ONE (07:56)
[2022-12-01] MEDS ORDERED: propofoL 200 MG/20 ML VIAL As Ordered ONE (07:56)
[2022-12-01] MEDS ORDERED: MIDAZOLAM INJ 2MG/2ML VIAL As Ordered ONE (07:56)
[2022-12-01] MEDS ORDERED: LIDOCAINE PRES-FREE 2% 10ML AMP INH ONE (08:00)
[2022-12-01] MEDS ORDERED: ALBUTEROL SULFATE 2.5MG/0.5ML INH NEB SOLN INH ONE (08:00)
[2022-12-01] MEDS ORDERED: LR 1,000 ML IV SCH ×2 (08:30→09:50)
[2022-12-01] MEDS ORDERED: EPINEPHrine 1MG/10ML SYRINGE 1.5IN As Ordered ONE (08:44)
[2022-12-01] MEDS ORDERED: CETACAINE SPRAY 5GM As Ordered ONE (08:45)
[2022-12-01] MEDS ORDERED: THROMBIN 5,000 UNITS VIAL As Ordered ONE (08:45)
[2022-12-01] MEDS ORDERED: ROCURONIUM BROMIDE 50MG/5ML VIAL As Ordered ONE (09:07)
[2022-12-01] MEDS ORDERED: SUGAMMADEX SODIUM 500 MG/5 ML VIAL (BRIDION) As Ordered ONE (09:35)
[2022-12-01] MEDS ORDERED: ONDANSETRON 4MG 2ML VIAL IV PRN (09:50)
[2022-12-01] MEDS ORDERED: fentaNYL 100 MCG/2 ML INJECTION IV PRN (09:50)
[2022-12-01 11:27] VITALS: BP 108/59
== END 2022-12-01 11:29 | disposition home or self-care (01) ==
LOC: M SDC 06:57
PROVIDERS: ATTEND Internal Medicine Pulmonary Disease
DX: C34.12 Malignant neoplasm of upper lobe, left bronchus or lung (principal); J98.4 Other disorders of lung; J45.40 Moderate persistent asthma, uncomplicated; F32.A Depression, unspecified; Z87.442 Personal history of urinary calculi; Z79.899 Other long term (current) drug therapy; F17.210 Nicotine dependence, cigarettes, uncomplicated
CPT/HCPCS: 31623; 31627; 31628; 31654; 71045; 76000; 88104; 88305; J0171; J1100; J2250; J3010

== ENCOUNTER → 2022-12-22 | Outpatient (CLI) | payer BC | LOC: M PLARAD 12:26 | PROVIDERS: ATTEND Internal Medicine Pulmonary Disease | DX: C34.10 Malignant neoplasm of upper lobe, unspecified bronchus or lung (principal) | CPT/HCPCS: 78815; A9552 ==

== ENCOUNTER → 2023-01-17 | Outpatient (CLI) | payer BC ==
[~2023-01-17] MED LIST changes: +BUPR150T12 PO; +NYST-38 PO; +ONDA8TAB8 PO; +PROC10TA5 PO; +PROHANCE 279.3MG/ML 5ML VIAL As Ordered ONE
== END ==
LOC: M RAD 16:20
PROVIDERS: ATTEND General Practice
DX: C34.12 Malignant neoplasm of upper lobe, left bronchus or lung (principal); C79.31 Secondary malignant neoplasm of brain

== ENCOUNTER → 2023-01-21 | Outpatient (RCR) | payer BC ==
[~2023-01-21] MED LIST changes: -PROHANCE 279.3MG/ML 5ML VIAL As Ordered ONE
== END ==
LOC: M ONCR 12-30 13:49
PROVIDERS: ATTEND General Practice
DX: C34.12 Malignant neoplasm of upper lobe, left bronchus or lung (principal); C79.31 Secondary malignant neoplasm of brain

== ENCOUNTER 2023-02-08 09:03 | Outpatient (RCR) | payer BC ==
[~2023-02-08 09:03] MED LIST changes: +OMEP-173 PO
[2023-02-14] MEDS ORDERED: OMEP-173 PO (08:03)
[2023-02-14] MEDS ORDERED: ESSE250T PO (10:41)
[2023-02-18] MEDS ORDERED: OXYC-517 PO (09:38)
[2023-02-21] MEDS ORDERED: FLUC10TA PO (12:44)
[2023-02-21] MEDS ORDERED: SUCR1SS PO (12:44)
[2023-02-22] MEDS ORDERED: FLUC10TA PO ×2 (14:28→16:06)
[2023-02-22] MEDS ORDERED: SUCR1SS PO ×2 (14:28→16:06)
[2023-02-24] MEDS ORDERED: CARA1TAB6 PO (11:26)
== END 2023-02-21 ==
LOC: M ONCR 09:03
PROVIDERS: ATTEND General Practice
DX: C79.31 Secondary malignant neoplasm of brain (principal)

== ENCOUNTER → 2023-02-21 | Outpatient (RCR) | payer BC ==
[~2023-02-21] MED LIST changes: +CARA1TAB6 PO; +ESSE250T PO; +FLUC10TA PO; +OXYC-517 PO; +SUCR1SS PO
== END ==
LOC: M ONCR 01-26 07:31
PROVIDERS: ATTEND General Practice
DX: C34.12 Malignant neoplasm of upper lobe, left bronchus or lung (principal)

== ENCOUNTER 2023-02-26 19:10 | Emergency (ER) | payer BC ==
[~2023-02-26] VITALS: Ht 152.4 cm; Wt 46.5 kg
[2023-02-26] MEDS ORDERED: PANTOPRAZOLE 40MG VIAL IV ONE (20:05)
[2023-02-26] MEDS ORDERED: MAALOX 30 ML SUSP *UDC PO ONE (20:05)
[2023-02-26] MEDS ORDERED: MAGIC MOUTHWASH *ED ONLY* 5ML ORAL SYRINGE SS ONE (22:10)
[2023-02-26] MEDS ORDERED: NS 1,000 ML IV ONE (22:10)
[2023-02-26] MEDS ORDERED: MAGICMW SS (23:08)
[2023-02-26 23:27] VITALS: BP 108/70; TEMP 98.8; O2SAT 93
[2023-03-03] MEDS ORDERED: MIRT-62 PO (01:04)
== END 2023-02-26 23:30 | disposition home or self-care (01) ==
LOC: M ED 19:10
DX: R13.10 Dysphagia, unspecified (principal); J44.9 Chronic obstructive pulmonary disease, unspecified; Z79.899 Other long term (current) drug therapy; Z79.51 Long term (current) use of inhaled steroids
CPT/HCPCS: 87880; 96374; 99284; C9113

== ENCOUNTER 2023-03-01 09:08 | Outpatient (RCR) | payer BC ==
[~2023-03-01 09:08] MED LIST changes: +MAGICMW SS
[2023-03-01] MEDS ORDERED: CARA1TAB6 PO (09:42)
[2023-03-01] MEDS ORDERED: OXYC5SOL11 PO (09:42)
[2023-03-01] MEDS ORDERED: FLUO15CR3 TOP (10:26)
[2023-03-03] MEDS ORDERED: OMEP1CAP73 PO (01:04)
[2023-03-03] MEDS ORDERED: ALBU8.5H INH (01:04)
[2023-03-03] MEDS ORDERED: MIRT-88 PO (01:04)
[2023-03-04] MEDS ORDERED: PROTPAK PO (13:57)
[2023-03-04] MEDS ORDERED: SUCR1ORA PO (13:57)
[2023-03-06] MEDS ORDERED: MAGN400T2 PO (10:42)
[2023-03-06] MEDS ORDERED: MAGICMW SS (10:42)
[2023-03-06] MEDS ORDERED: POTA20EL PO (10:42)
[2023-03-08] MEDS ORDERED: PANT40TA29 PO (14:43)
[2023-03-25] MEDS ORDERED: OXYC5SOL11 PO (10:39)
[2023-03-25] MEDS ORDERED: OXYC10TA12 PO (12:48)
== END 2023-03-24 ==
LOC: M ONCR 09:08
PROVIDERS: ATTEND General Practice
DX: Z51.0 Encounter for antineoplastic radiation therapy (principal); C34.12 Malignant neoplasm of upper lobe, left bronchus or lung; C79.31 Secondary malignant neoplasm of brain

== ENCOUNTER → 2023-03-08 | Outpatient (CLI) | payer BC ==
[~2023-03-08] MED LIST changes: +ALBU8.5H INH; +FLUO15CR3 TOP; +MAGN400T2 PO; +MIRT-62 PO; +OXYC5SOL11 PO; +PANT40TA29 PO; +POTA20EL PO; +PROTPAK PO; +SUCR1ORA PO
== END ==
LOC: M ONCR 14:26
PROVIDERS: ATTEND General Practice
DX: K20.80 Other esophagitis without bleeding (principal); Z92.3 Personal history of irradiation

== ENCOUNTER → 2023-03-15 | Outpatient (CLI) | payer BC | LOC: M ONCR 09:00 | PROVIDERS: ATTEND General Practice | DX: K20.80 Other esophagitis without bleeding (principal); Z79.891 Long term (current) use of opiate analgesic; Z79.899 Other long term (current) drug therapy; Z92.3 Personal history of irradiation ==

== ENCOUNTER → 2023-03-25 | Outpatient (CLI) | payer BC ==
[~2023-03-25] MED LIST changes: +OXYC10TA12 PO
== END ==
LOC: M ONCR 10:03
PROVIDERS: ATTEND General Practice
DX: Z01.89 Encounter for other specified special examinations (principal); R63.8 Other symptoms and signs concerning food and fluid intake; Z79.891 Long term (current) use of opiate analgesic; R13.10 Dysphagia, unspecified

== ENCOUNTER → 2023-04-07 | Outpatient (CLI) | payer BC ==
[~2023-04-07] MED LIST changes: +GASTROGRAFIN SOLUTION 30ML As Ordered ONE; +ISOVUE-370 76% 100ML VIAL As Ordered ONE; -MIRT-62 PO; +MIRT-88 PO
== END ==
LOC: M RAD 08:36
PROVIDERS: ATTEND Internal Medicine Medical Oncology
DX: C34.90 Malignant neoplasm of unspecified part of unspecified bronchus or lung (principal)
CPT/HCPCS: 71260; 74177; Q9963; Q9967

== ENCOUNTER → 2023-04-08 | Outpatient (CLI) | payer BC ==
[~2023-04-08] MED LIST changes: -GASTROGRAFIN SOLUTION 30ML As Ordered ONE; -ISOVUE-370 76% 100ML VIAL As Ordered ONE
== END ==
LOC: M ONCR 09:59
PROVIDERS: ATTEND General Practice
DX: C79.31 Secondary malignant neoplasm of brain (principal); C34.12 Malignant neoplasm of upper lobe, left bronchus or lung

== ENCOUNTER → 2023-05-23 | Outpatient (CLI) | payer BC ==
[~2023-05-23] MED LIST changes: +E-Z-GAS II EFFERVESCENT PACKET (SODIUM BICARB./CITRIC ACID/SIMETHICONE) As Ordered ONE; +E-Z-HD 98% w/w 340GM SUSP BTL As Ordered ONE; +E-Z-PAQUE 96% w/w SUSP 176GM BTL As Ordered ONE
== END ==
LOC: M RAD 09:56
PROVIDERS: ATTEND Internal Medicine Gastroenterology
DX: K22.89 Other specified disease of esophagus (principal)

== ENCOUNTER → 2023-05-26 | Outpatient (CLI) | payer BC ==
[~2023-05-26] MED LIST changes: -E-Z-GAS II EFFERVESCENT PACKET (SODIUM BICARB./CITRIC ACID/SIMETHICONE) As Ordered ONE; -E-Z-HD 98% w/w 340GM SUSP BTL As Ordered ONE; -E-Z-PAQUE 96% w/w SUSP 176GM BTL As Ordered ONE; +PROHANCE 279.3MG/ML 5ML VIAL As Ordered ONE
== END ==
LOC: M RAD 09:51
PROVIDERS: ATTEND General Practice
DX: C79.31 Secondary malignant neoplasm of brain (principal); G93.6 Cerebral edema
CPT/HCPCS: 70553; A9576

== ENCOUNTER → 2023-05-27 | Outpatient (CLI) | payer BC ==
[~2023-05-27] MED LIST changes: -FLUT50SP17 INH; +FLUTISP INH; -PROHANCE 279.3MG/ML 5ML VIAL As Ordered ONE
== END ==
LOC: M ONCR 09:54
PROVIDERS: ATTEND General Practice
DX: C79.31 Secondary malignant neoplasm of brain (principal)

== ENCOUNTER 2023-06-15 14:02 | Outpatient (RCR) | payer BC ==
[~2023-06-15 14:02] MED LIST changes: +FLUT50SP17 INH; -FLUTISP INH
== END 2023-06-23 ==
LOC: M ONCR 14:02
PROVIDERS: ATTEND General Practice
DX: Z51.0 Encounter for antineoplastic radiation therapy (principal); C79.31 Secondary malignant neoplasm of brain; C34.12 Malignant neoplasm of upper lobe, left bronchus or lung

== ENCOUNTER → 2023-08-18 | Outpatient (CLI) | payer BC ==
[~2023-08-18] MED LIST changes: +ALBU2.5V10 INH; +AZIT-10 PO; +BUDE10.7 INH; -FLUT50SP17 INH; +FLUTISP INH; +GUAI600T12 PO; +LEVO1TAB40 PO; +MIRT-10 PO; +MULTCHW12 PO; +NEBU1EAC78 MC; +PRED10TA2 PO; +ZITH250T PO
== END ==
LOC: M ONCR 11:57
PROVIDERS: ATTEND General Practice
DX: R05.9 Cough, unspecified (principal); R53.83 Other fatigue

== ENCOUNTER → 2023-08-26 | Outpatient (CLI) | payer BC ==
[~2023-08-26] MED LIST changes: +GASTROGRAFIN SOLUTION 30ML As Ordered ONE; +ISOVUE-370 76% 100ML VIAL As Ordered ONE
== END ==
LOC: M RAD 14:08
PROVIDERS: ATTEND Internal Medicine Medical Oncology
DX: C34.90 Malignant neoplasm of unspecified part of unspecified bronchus or lung (principal)
CPT/HCPCS: 74177; Q9963; Q9967

== ENCOUNTER 2023-09-08 09:45 | Day surgery (SDC) | payer BC ==
[~2023-09-08] VITALS: Ht 152.4 cm; Wt 43.3 kg
[~2023-09-08 09:45] MED LIST changes: -GASTROGRAFIN SOLUTION 30ML As Ordered ONE; -ISOVUE-370 76% 100ML VIAL As Ordered ONE; +MIRT45TA68 PO; -POTA20EL PO; +POTA20LI16 PO; -REME45TA2 PO
[2023-09-08] MEDS: NS 1,000 ML IV ONE (10:00)
[2023-09-08 12:48] VITALS: TEMP 97.5
[2023-09-08] MEDS ORDERED: PHENYLephrine 500MCG 5ML (100MCG/ML) SYRINGE As Ordered ONE (13:25)
[2023-09-08] MEDS: ALBUTEROL SULFATE 2.5MG/0.5ML INH NEB SOLN NEB STA (14:50)
[2023-09-08 14:52] VITALS: BP 107/58; O2SAT 92
== END 2023-09-08 15:13 | disposition home or self-care (01) ==
LOC: M OPP 09:45
PROVIDERS: ATTEND Internal Medicine Gastroenterology
DX: Z12.11 Encounter for screening for malignant neoplasm of colon (principal); K63.5 Polyp of colon; K64.4 Residual hemorrhoidal skin tags; K64.8 Other hemorrhoids; K57.30 Diverticulosis of large intestine without perforation or abscess without bleeding; T66.XXXA Radiation sickness, unspecified, initial encounter; K20.80 Other esophagitis without bleeding; K22.4 Dyskinesia of esophagus; K29.70 Gastritis, unspecified, without bleeding; K31.89 Other diseases of stomach and duodenum
CPT/HCPCS: 43239; 43249; 45385; 71045; 88305; J2371

== ENCOUNTER → 2023-09-09 | Outpatient (CLI) | payer BC ==
[~2023-09-09] MED LIST changes: +PROHANCE 279.3MG/ML 5ML VIAL As Ordered ONE
== END ==
LOC: M RAD 10:36
PROVIDERS: ATTEND General Practice
DX: C79.31 Secondary malignant neoplasm of brain (principal)
CPT/HCPCS: 70553; A9576

== ENCOUNTER → 2023-09-16 | Outpatient (CLI) | payer BC ==
[~2023-09-16] MED LIST changes: +DEXA4TA PO; -PROHANCE 279.3MG/ML 5ML VIAL As Ordered ONE
== END ==
LOC: M ONCR 11:18
PROVIDERS: ATTEND General Practice
DX: C79.31 Secondary malignant neoplasm of brain (principal); C34.12 Malignant neoplasm of upper lobe, left bronchus or lung; F17.210 Nicotine dependence, cigarettes, uncomplicated; R51.9 Headache, unspecified; R05.9 Cough, unspecified; Z79.51 Long term (current) use of inhaled steroids; Z79.52 Long term (current) use of systemic steroids

== ENCOUNTER 2023-09-29 20:54 | Emergency (ER) | payer BC ==
[~2023-09-29] VITALS: Ht 165.1 cm; Wt 43.0 kg
[~2023-09-29 20:54] MED LIST changes: +MEMA10TA19 PO; +MEMA1TAB3 PO
[2023-09-29 22:30] LABS: VENOUS BASE EXCESS 3.2 (-2.0-2.0); VENOUS HCO3 31.1 MMOL/L (23.0-27.0); VENOUS O2 SATURATION 78.4 % (60.0-80.0); VENOUS PARTIAL PRESSURE CO2 62.4 mmHg (38.0-50.0); VENOUS PARTIAL PRESSURE O2 43.9 mmHg (30.0-50.0); VENOUS PH 7.316 UNITS (7.330-7.430); VENOUS STANDARD HCO3 26.9 MMOL/L; VENOUS TOTAL CO2 33.1 MMOL/L (24.0-28.0)
[2023-09-29 22:34] LABS: BASO % 0.2 % (0.0-1.0); EOS # 0.2 10^3/uL (0.0-0.5); EOS % 2.4 % (0.0-3.0); HEMATOCRIT 38.5 % (36.0-47.0); LYMPH # 0.5 10^3/uL (1.5-5.0); LYMPH % 5.6 % (24.0-44.0); MEAN CORPUSCULAR HEMOGLOBIN 32.7 pg (27.0-33.0); MEAN CORPUSCULAR HGB CONC 33.8 g/dl (32.0-36.5); MEAN CORPUSCULAR VOLUME 96.7 fl (80.0-96.0); MONO # 0.8 10^3/uL (0.0-0.8); MONO % 10.2 % (2.0-8.0); NEUTROPHILS # 6.6 10^3/uL (1.5-8.5); NEUTROPHILS % 81.4 % (36.0-66.0); PLATELET COUNT, AUTOMATED 239 10^3/uL (150-450); RED BLOOD COUNT 3.98 10^6/uL (4.00-5.40); WHITE BLOOD COUNT 8.1 10^3/uL (4.0-10.0)
[2023-09-29] MEDS: methylPREDNISolone 125MG 2ML VIAL IV ONE (22:36)
[2023-09-29] MEDS: IPRATROPIUM 0.5MG/ALBUTEROL 2.5MG INH SOL UD 3ML (DUONEB) NEB PRN (22:40)
[2023-09-29 23:07] LABS: CK-MB VALUE MASS 3.3 NG/ML (<3.6)
[2023-09-29 23:08] LABS: ALBUMIN 3.6 G/DL (3.2-5.2); ALKALINE PHOSPHATASE 109 U/L (46-116); ALT/SGPT 32 U/L (7.0-40); AST/SGOT 18 U/L (<34); BILIRUBIN,DIRECT 0.1 MG/DL (<0.4); BILIRUBIN,TOTAL 0.4 MG/DL (0.3-1.2); BLOOD UREA NITROGEN 15 MG/DL (9-23); CALCIUM LEVEL 9.4 MG/DL (8.5-10.1); CARBON DIOXIDE LEVEL 32 MMOL/L (20-31); CHLORIDE LEVEL 107 MMOL/L (98-107); CPK CREATINE PHOSPHOKINASE 75 U/L (34-145); CREATININE FOR GFR 0.78 MG/DL (0.55-1.30); GLOMERULAR FILTRATION RATE > 60.0 (>51); GLUCOSE, FASTING 111 MG/DL (60-100); POTASSIUM SERUM 4.3 MMOL/L (3.5-5.1); SODIUM LEVEL 142 MMOL/L (136-145); TOTAL PROTEIN 6.6 G/DL (5.7-8.2)
[2023-09-29] MEDS ORDERED: ISOVUE-370 76% 100ML VIAL As Ordered ONE (23:39)
[2023-09-30 00:57] LABS: CK-MB VALUE MASS 3.3 NG/ML (<3.6); MB/CK RELATIVE INDEX 3.88 (< OR =4)
[2023-09-30] MEDS ORDERED: PRED20TA PO (02:04)
[2023-09-30 02:36] VITALS: BP 108/62; TEMP 97.7; O2SAT 96
== END 2023-09-30 02:37 | disposition home or self-care (01) ==
LOC: M ED 20:54
DX: J44.1 Chronic obstructive pulmonary disease with (acute) exacerbation (principal); G43.909 Migraine, unspecified, not intractable, without status migrainosus; E55.9 Vitamin D deficiency, unspecified; F17.200 Nicotine dependence, unspecified, uncomplicated; Z99.81 Dependence on supplemental oxygen; C34.90 Malignant neoplasm of unspecified part of unspecified bronchus or lung; C79.31 Secondary malignant neoplasm of brain; Z79.51 Long term (current) use of inhaled steroids; Z79.899 Other long term (current) drug therapy
CPT/HCPCS: 71045; 71275; 80048; 80076; 82550; 82553; 82803; 83605; 83880; 84484; 85025; 87040; 87486; 87581; 87633; 87798; 93005; 93041; 94640; 94760; 96374; 99284; J2930; Q9967

== ENCOUNTER 2023-10-14 14:45 | Outpatient (RCR) | payer BC ==
[~2023-10-14 14:45] MED LIST changes: +PRED20TA PO
[2023-10-18] MEDS ORDERED: LEVO1TAB40 PO ×2 (10:43→10:44)
[2023-10-20] MEDS ORDERED: SENO8.6T10 PO (13:33)
[2023-10-20] MEDS ORDERED: MIRA3350 PO (13:33)
== END 2023-10-23 ==
LOC: M ONCR 14:45
PROVIDERS: ATTEND General Practice
DX: Z51.0 Encounter for antineoplastic radiation therapy (principal); C79.31 Secondary malignant neoplasm of brain

== ENCOUNTER → 2023-11-28 | Outpatient (CLI) | payer BC ==
[~2023-11-28] VITALS: Ht 152.4 cm; Wt 40.8 kg
[~2023-11-28] MED LIST changes: +ARTIDRO4 OP; +BUPR-597 PO; -BUPR300T92 PO; +DOXY-323 PO; -DOXY-443 PO; +MEMA10TA PO; -MEMA10TA19 PO; +MIRA3350 PO; +MIRT1TAB PO; +MUCI1TAB16 PO; +SENO8.6T10 PO; +TOBRSUS39 OU
[2023-11-28 14:48] VITALS: BP 109/68; TEMP 98.4; O2SAT 94
== END ==
LOC: M PAL 14:28
PROVIDERS: ATTEND Nurse Practitioner Adult Health
DX: C79.31 Secondary malignant neoplasm of brain (principal); C34.90 Malignant neoplasm of unspecified part of unspecified bronchus or lung; R51.9 Headache, unspecified; J44.1 Chronic obstructive pulmonary disease with (acute) exacerbation; R64 Cachexia; R63.0 Anorexia; R53.83 Other fatigue; G47.00 Insomnia, unspecified; F17.210 Nicotine dependence, cigarettes, uncomplicated; Z51.5 Encounter for palliative care; Z79.51 Long term (current) use of inhaled steroids; Z79.891 Long term (current) use of opiate analgesic; Z79.899 Other long term (current) drug therapy; Z85.828 Personal history of other malignant neoplasm of skin; Z98.51 Tubal ligation status; Z80.0 Family history of malignant neoplasm of digestive organs; Z80.3 Family history of malignant neoplasm of breast; Z80.7 Family history of other malignant neoplasms of lymphoid, hematopoietic and related tissues; Z92.21 Personal history of antineoplastic chemotherapy; Z92.3 Personal history of irradiation

== ENCOUNTER → 2023-12-13 | Outpatient (CLI) | payer BC | LOC: M ONCM 09:13 | PROVIDERS: ATTEND Dietitian, Registered | DX: C34.90 Malignant neoplasm of unspecified part of unspecified bronchus or lung (principal); C79.31 Secondary malignant neoplasm of brain; Z68.1 Body mass index [BMI] 19.9 or less, adult; Z71.3 Dietary counseling and surveillance ==

== ENCOUNTER → 2023-12-16 | Outpatient (CLI) | payer BC ==
[~2023-12-16] MED LIST changes: +GASTROGRAFIN SOLUTION 30ML ONE; +ISOVUE-370 76% 100ML VIAL ONE
== END ==
LOC: M RAD 12-07 15:52 → M PLAIMG 11:02
PROVIDERS: ATTEND Internal Medicine Medical Oncology
DX: C34.90 Malignant neoplasm of unspecified part of unspecified bronchus or lung (principal); J47.9 Bronchiectasis, uncomplicated
CPT/HCPCS: 71260; 74177; Q9963; Q9967

== ENCOUNTER → 2023-12-21 | Outpatient (CLI) | payer BC ==
[~2023-12-21] MED LIST changes: -GASTROGRAFIN SOLUTION 30ML ONE; -ISOVUE-370 76% 100ML VIAL ONE
== END ==
LOC: M RAD 09:42
PROVIDERS: ATTEND General Practice
DX: C34.12 Malignant neoplasm of upper lobe, left bronchus or lung (principal)

== ENCOUNTER → 2023-12-28 | Outpatient (CLI) | payer BC ==
[~2023-12-28] MED LIST changes: +ONDA-284 PO; -ONDA8TAB8 PO; +PROHANCE 279.3MG/ML 5ML VIAL As Ordered ONE
== END ==
LOC: M RAD 13:58
PROVIDERS: ATTEND General Practice
DX: C34.12 Malignant neoplasm of upper lobe, left bronchus or lung (principal); C79.31 Secondary malignant neoplasm of brain
CPT/HCPCS: 70553; A9576

== ENCOUNTER → 2023-12-29 | Outpatient (CLI) | payer BC ==
[~2023-12-29] VITALS: Ht 152.4 cm; Wt 46.2 kg
[~2023-12-29] MED LIST changes: -PROHANCE 279.3MG/ML 5ML VIAL As Ordered ONE
[2023-12-29 10:30] VITALS: BP 106/68; O2SAT 95
== END ==
LOC: M PAL 10:12
PROVIDERS: ATTEND Nurse Practitioner Adult Health
DX: C79.31 Secondary malignant neoplasm of brain (principal); C34.90 Malignant neoplasm of unspecified part of unspecified bronchus or lung; R64 Cachexia; R63.0 Anorexia; R53.83 Other fatigue; G47.00 Insomnia, unspecified; F17.210 Nicotine dependence, cigarettes, uncomplicated; Z51.5 Encounter for palliative care; Z79.51 Long term (current) use of inhaled steroids; Z79.891 Long term (current) use of opiate analgesic; Z79.899 Other long term (current) drug therapy; Z85.828 Personal history of other malignant neoplasm of skin; Z80.0 Family history of malignant neoplasm of digestive organs; Z80.3 Family history of malignant neoplasm of breast; Z80.7 Family history of other malignant neoplasms of lymphoid, hematopoietic and related tissues; Z92.21 Personal history of antineoplastic chemotherapy; Z92.3 Personal history of irradiation; Z98.51 Tubal ligation status; M54.2 Cervicalgia

== ENCOUNTER → 2024-01-17 | Outpatient (CLI) | payer BC ==
[~2024-01-17] MED LIST changes: +DULO60CA35 PO
== END ==
LOC: M ONCR 14:24
PROVIDERS: ATTEND General Practice
DX: C34.12 Malignant neoplasm of upper lobe, left bronchus or lung (principal); C79.31 Secondary malignant neoplasm of brain; F17.210 Nicotine dependence, cigarettes, uncomplicated; M54.12 Radiculopathy, cervical region; Z79.60 Long term (current) use of unspecified immunomodulators and immunosuppressants; Z79.899 Other long term (current) drug therapy; Z92.21 Personal history of antineoplastic chemotherapy; Z92.3 Personal history of irradiation

== ENCOUNTER → 2024-02-02 | Outpatient (CLI) | payer BC | LOC: M RAD 15:15 | PROVIDERS: ATTEND Internal Medicine Medical Oncology | DX: E04.1 Nontoxic single thyroid nodule (principal) ==

== ENCOUNTER → 2024-02-09 | Outpatient (CLI) | payer BC ==
[~2024-02-09] VITALS: Ht 152.4 cm; Wt 42.8 kg
[~2024-02-09] MED LIST changes: +MELO15TA28 PO; +MIRTAZAPINE
[2024-02-09 13:53] VITALS: BP 104/69; O2SAT 94
== END ==
LOC: M PAL 12:40
PROVIDERS: ATTEND Nurse Practitioner Adult Health
DX: C79.31 Secondary malignant neoplasm of brain (principal); C34.90 Malignant neoplasm of unspecified part of unspecified bronchus or lung; R64 Cachexia; R63.0 Anorexia; R53.83 Other fatigue; G47.00 Insomnia, unspecified; F17.210 Nicotine dependence, cigarettes, uncomplicated; M54.2 Cervicalgia; M25.511 Pain in right shoulder; M25.512 Pain in left shoulder; Z51.5 Encounter for palliative care; Z79.51 Long term (current) use of inhaled steroids; Z79.891 Long term (current) use of opiate analgesic; Z79.899 Other long term (current) drug therapy; Z85.828 Personal history of other malignant neoplasm of skin; Z80.0 Family history of malignant neoplasm of digestive organs; Z80.3 Family history of malignant neoplasm of breast; Z80.7 Family history of other malignant neoplasms of lymphoid, hematopoietic and related tissues; Z92.21 Personal history of antineoplastic chemotherapy; Z92.3 Personal history of irradiation; Z98.51 Tubal ligation status

== ENCOUNTER → 2024-03-01 | Outpatient (CLI) | payer BC ==
[~2024-03-01] MED LIST changes: +GASTROGRAFIN SOLUTION 30ML As Ordered ONE; +ISOVUE-370 76% 100ML VIAL As Ordered ONE
== END ==
LOC: M RAD 09:40
PROVIDERS: ATTEND Internal Medicine Medical Oncology
DX: C34.90 Malignant neoplasm of unspecified part of unspecified bronchus or lung (principal)
CPT/HCPCS: 71260; 74177; Q9963; Q9967

== ENCOUNTER → 2024-04-10 | Outpatient (CLI) | payer BC ==
[~2024-04-10] VITALS: Ht 149.9 cm; Wt 40.8 kg
[~2024-04-10] MED LIST changes: -DOXY-323 PO; +DOXY-441 PO; -GASTROGRAFIN SOLUTION 30ML As Ordered ONE; -ISOVUE-370 76% 100ML VIAL As Ordered ONE
[2024-04-10 11:10] VITALS: BP 99/63; O2SAT 93
== END ==
LOC: M PAL 11:04
PROVIDERS: ATTEND Nurse Practitioner Adult Health
DX: C79.31 Secondary malignant neoplasm of brain (principal); C34.90 Malignant neoplasm of unspecified part of unspecified bronchus or lung; R64 Cachexia; R63.0 Anorexia; R53.83 Other fatigue; G47.00 Insomnia, unspecified; F17.210 Nicotine dependence, cigarettes, uncomplicated; M54.2 Cervicalgia; M25.511 Pain in right shoulder; M25.512 Pain in left shoulder; Z51.5 Encounter for palliative care; Z79.51 Long term (current) use of inhaled steroids; Z79.1 Long term (current) use of non-steroidal anti-inflammatories (NSAID); Z79.891 Long term (current) use of opiate analgesic; Z79.899 Other long term (current) drug therapy; Z85.828 Personal history of other malignant neoplasm of skin; Z80.0 Family history of malignant neoplasm of digestive organs; Z80.3 Family history of malignant neoplasm of breast; Z80.7 Family history of other malignant neoplasms of lymphoid, hematopoietic and related tissues; Z92.21 Personal history of antineoplastic chemotherapy; Z92.29 Personal history of other drug therapy; Z92.3 Personal history of irradiation; Z98.51 Tubal ligation status

== ENCOUNTER → 2024-04-11 | Outpatient (CLI) | payer BC ==
[~2024-04-11] MED LIST changes: +DOXY-323 PO; -DOXY-441 PO; +PROHANCE 279.3MG/ML 5ML VIAL As Ordered ONE
== END ==
LOC: M RAD 08:29
PROVIDERS: ATTEND General Practice
DX: C79.31 Secondary malignant neoplasm of brain (principal)
CPT/HCPCS: 70553; A9576

== ENCOUNTER → 2024-05-24 | Outpatient (RCR) | payer BC ==
[~2024-05-24] MED LIST changes: -DOXY-323 PO; +DOXY-441 PO; +MORP-69 PO; -PROHANCE 279.3MG/ML 5ML VIAL As Ordered ONE
== END ==
LOC: M PT 05-17 15:25
PROVIDERS: ATTEND Nurse Practitioner Family
DX: M54.12 Radiculopathy, cervical region (principal)

== ENCOUNTER → 2024-05-28 | Outpatient (CLI) | payer BC | LOC: M ONCR 09:32 | PROVIDERS: ATTEND General Practice | DX: C79.31 Secondary malignant neoplasm of brain (principal); C34.12 Malignant neoplasm of upper lobe, left bronchus or lung; M54.2 Cervicalgia; Z92.21 Personal history of antineoplastic chemotherapy; Z92.3 Personal history of irradiation; Z79.899 Other long term (current) drug therapy; Z79.891 Long term (current) use of opiate analgesic ==

== ENCOUNTER → 2024-06-01 | Outpatient (CLI) | payer BC | LOC: M RAD 15:19 | PROVIDERS: ATTEND Nurse Practitioner Family | DX: M54.12 Radiculopathy, cervical region (principal); M47.812 Spondylosis without myelopathy or radiculopathy, cervical region ==

== ENCOUNTER 2024-06-07 14:52 | Outpatient (RCR) | payer BC | END 2024-06-23 | LOC: M PT 14:52 | PROVIDERS: ATTEND Nurse Practitioner Family | DX: M54.12 Radiculopathy, cervical region (principal) ==

== ENCOUNTER → 2024-07-10 | Outpatient (CLI) | payer BC ==
[~2024-07-10] MED LIST changes: +AUGM500T34 PO; +ISOVUE-370 76% 100ML VIAL As Ordered ONE; +ONDA-282 PO
== END ==
LOC: M RAD 08:47
PROVIDERS: ATTEND Dietitian, Registered
DX: C34.90 Malignant neoplasm of unspecified part of unspecified bronchus or lung (principal); I31.39 Other pericardial effusion (noninflammatory); I70.0 Atherosclerosis of aorta; R16.0 Hepatomegaly, not elsewhere classified; I25.10 Atherosclerotic heart disease of native coronary artery without angina pectoris; J43.2 Centrilobular emphysema; J98.09 Other diseases of bronchus, not elsewhere classified
CPT/HCPCS: 71260; 74177; Q9967

== ENCOUNTER 2024-08-03 12:59 | Inpatient (IN) | payer BC ==
[~2024-08-03] VITALS: Ht 152.4 cm; Wt 38.0 kg
[~2024-08-03 12:59] MED LIST changes: -ISOVUE-370 76% 100ML VIAL As Ordered ONE; +OXYC20TA40 PO
[2024-08-03] MEDS: ONDANSETRON 4MG 2ML VIAL IV ONE (14:35)
[2024-08-03] MEDS: NS (Normal Saline) 0.9% 1,000 ML IV ONE (14:35)
[2024-08-03 14:43] LABS: BASO % 0.3 % (0.0-1.0); EOS # 0.1 10^3/uL (0.0-0.5); EOS % 0.7 % (0.0-3.0); HEMATOCRIT 35.3 % (36.0-47.0); HEMOGLOBIN 11.8 g/dl (12.0-15.5); LYMPH # 0.4 10^3/uL (1.5-5.0); LYMPH % 6.1 % (24.0-44.0); MEAN CORPUSCULAR HEMOGLOBIN 32.1 pg (27.0-33.0); MEAN CORPUSCULAR HGB CONC 33.4 g/dl (32.0-36.5); MEAN CORPUSCULAR VOLUME 95.9 fl (80.0-96.0); MONO # 0.5 10^3/uL (0.0-0.8); MONO % 7.9 % (2.0-8.0); NEUTROPHILS # 5.8 10^3/uL (1.5-8.5); NEUTROPHILS % 84.6 % (36.0-66.0); PLATELET COUNT, AUTOMATED 275 10^3/uL (150-450); RED BLOOD COUNT 3.68 10^6/uL (4.00-5.40); WHITE BLOOD COUNT 6.9 10^3/uL (4.0-10.0)
[2024-08-03 15:08] LABS: LIPASE 22 U/L (12-53)
[2024-08-03 15:10] LABS: ALBUMIN 3.2 G/DL (3.2-5.2); ALKALINE PHOSPHATASE 91 U/L (35-104); ALT/SGPT 12 U/L (7.0-40); AST/SGOT 12 U/L (<34); BILIRUBIN,DIRECT < 0.1 MG/DL (<0.4); BILIRUBIN,TOTAL 0.2 MG/DL (0.3-1.2); BLOOD UREA NITROGEN 30 MG/DL (9-23); CALCIUM LEVEL 9.5 MG/DL (8.5-10.1); CARBON DIOXIDE LEVEL 27 MMOL/L (20-31); CHLORIDE LEVEL 107 MMOL/L (98-107); CREATININE FOR GFR 0.87 MG/DL (0.55-1.30); GLOMERULAR FILTRATION RATE > 60.0 (>51); GLUCOSE, FASTING 86 MG/DL (60-100); POTASSIUM SERUM 3.8 MMOL/L (3.5-5.1); SODIUM LEVEL 144 MMOL/L (136-145); TOTAL PROTEIN 6.6 G/DL (5.7-8.2)
[2024-08-03] MEDS ORDERED: ISOVUE-370 76% 100ML VIAL As Ordered ONE (15:48)
[2024-08-03] MEDS: ACETAMINOPHEN 325 MG TAB PO ONE (16:30)
[2024-08-03] MEDS: oxyCODONE 5MG TAB PO ONE (17:38)
[2024-08-03] MEDS: MORPHINE 2 MG/ML 1ML VIAL IV ONE (18:30)
[2024-08-03] MEDS: MAGNESIUM CITRATE 300ML BTL PO ONE (19:01)
[2024-08-03] MEDS: METHYLNALTREXONE BROMIDE 12MG/0.6ML VIAL (RELISTOR) SC ONE (19:42)
[2024-08-03] MEDS: IPRATROPIUM 0.5MG/ALBUTEROL 2.5MG INH SOL UD 3ML (DUONEB) NEB SCH (20:00)
[2024-08-03] MEDS: ACETYLCYSTEINE 20% 4 ML VIAL (200MG/ML) INH SCH (20:00)
[2024-08-03] MEDS ORDERED: oxyCODONE 20MG CR TAB PO SCH (21:00)
[2024-08-03] MEDS ORDERED: HOME MED LIST COMPLETE! XX SCH (21:45)
[2024-08-03] MEDS ORDERED: MOM 30ML SUSPENSION UDC PO PRN (22:15)
[2024-08-03] MEDS ORDERED: ALBUTEROL SULFATE 2.5MG/0.5ML INH NEB SOLN INH PRN (22:15)
[2024-08-03] MEDS ORDERED: ALBUTEROL 90 MCG/ACT 8GM HFA INHALER INH PRN (22:15)
[2024-08-03] MEDS ORDERED: SENOKOT S TAB PO PRN (22:15)
[2024-08-03] MEDS: oxyCODONE 10 MG CR TAB PO SCH (23:13)
[2024-08-03] MEDS: MONTELUKAST 10 MG TAB PO SCH (23:13)
[2024-08-03] MEDS: guaiFENesin 200 MG TAB PO SCH (23:14)
[2024-08-03] MEDS: MIRTAZAPINE 7.5MG PER 1/2 TABLET PO SCH (23:15)
[2024-08-03] MEDS: ONDANSETRON 4MG TAB PO SCH (23:16)
[2024-08-03] MEDS: LIDOCAINE 5% (LIDODERM) PATCH TD ONE (23:16)
[2024-08-03] MEDS: MEMANTINE 5MG TABLET (NAMENDA) PO SCH (23:19)
[2024-08-03] MEDS: D5W/LR 1,000 ML IV SCH (23:30)
[2024-08-04] MEDS: ACETYLCYSTEINE 20% 4 ML VIAL (200MG/ML) INH ONE (00:44)
[2024-08-04] MEDS: PANTOPRAZOLE 40MG TAB (PROTONIX) PO SCH (00:59)
[2024-08-04] MEDS: oxyCODONE 5MG TAB PO PRN (04:20)
[2024-08-04 05:45] LABS: HEMATOCRIT 38.2 % (36.0-47.0); HEMOGLOBIN 12.9 g/dl (12.0-15.5); MEAN CORPUSCULAR HEMOGLOBIN 32.2 pg (27.0-33.0); MEAN CORPUSCULAR HGB CONC 33.8 g/dl (32.0-36.5); MEAN CORPUSCULAR VOLUME 95.3 fl (80.0-96.0); PLATELET COUNT, AUTOMATED 272 10^3/uL (150-450); RED BLOOD COUNT 4.01 10^6/uL (4.00-5.40); WHITE BLOOD COUNT 3.6 10^3/uL (4.0-10.0)
[2024-08-04 06:29] LABS: ALBUMIN 3.2 G/DL (3.2-5.2); ALKALINE PHOSPHATASE 98 U/L (35-104); ALT/SGPT 14 U/L (7.0-40); AST/SGOT 22 U/L (<34); BILIRUBIN,TOTAL 0.3 MG/DL (0.3-1.2); BLOOD UREA NITROGEN 24 MG/DL (9-23); CALCIUM LEVEL 9.5 MG/DL (8.5-10.1); CARBON DIOXIDE LEVEL 28 MMOL/L (20-31); CHLORIDE LEVEL 105 MMOL/L (98-107); GLOMERULAR FILTRATION RATE > 60.0 (>51); GLUCOSE, FASTING 203 MG/DL (60-100); POTASSIUM SERUM 4.2 MMOL/L (3.5-5.1); SODIUM LEVEL 140 MMOL/L (136-145); TOTAL PROTEIN 6.7 G/DL (5.7-8.2)
[2024-08-04] MEDS: DULoxetine 30MG CAPSULE (CYMBALTA) PO SCH (08:48)
[2024-08-04] MEDS: ENOXAPARIN 40MG/0.4ML SYRINGE (J1650 PER 10MG) SC SCH (08:51)
[2024-08-04 12:18] LABS: PROCALCITONIN <0.04 ng/ml
[2024-08-04 13:33] LABS: KETONE, URINE AUTO RFX 1+ mg/dL (NEGATIVE); LEUKOCYTE ESTERASE UR AUTO RFX NEGATIVE (NEGATIVE); NITRITE, URINE AUTO RFX NEGATIVE (NEGATIVE); RBC, URINE AUTO RFX 1 /HPF (0-3); SQUAM EPITHELIAL CELL UR AURFX 1 /HPF (0-6); WBC, URINE AUTO RFX 1 /HPF (0-3)
[2024-08-04] MEDS: IPRATROPIUM 0.02% SOLN 0.5MG 2.5ML NEB NEB ONE (13:46)
[2024-08-04] MEDS: LEVALBUTEROL 1.25MG 0.5ML CONCENTRATE NEB NEB ONE (14:03)
[2024-08-04] MEDS: IPRATROPIUM 0.5MG/ALBUTEROL 2.5MG INH SOL UD 3ML (DUONEB) NEB ONE (16:15)
[2024-08-04] MEDS ORDERED: methylPREDNISolone 125MG 2ML VIAL IV ONE (16:15)
[2024-08-04] MEDS: NYSTATIN 500,000U/5ML SUSP UDC SS SCH (17:00)
[2024-08-04] MEDS: SALIVA SUBSTITUTE(MOUTHKOTE) BTL MT SCH (17:00)
[2024-08-04] MEDS: IPRATROPIUM 0.5MG/ALBUTEROL 2.5MG INH SOL UD 3ML (DUONEB) NEB SCH (19:49)
[2024-08-04] MEDS: guaiFENesin ER TABLET 600 MG TAB PO SCH (20:42)
[2024-08-04] MEDS: FLUCONAZOLE 50MG TABLET PO ONE (20:42)
[2024-08-04] MEDS: LACTULOSE 20GM/30ML SYRUP UDC PO SCH (20:44)
[2024-08-04] MEDS: SENOKOT S TAB PO SCH (20:44)
[2024-08-04] MEDS: DOXYCYCLINE HYCLATE 100MG TABLET PO SCH (20:45)
[2024-08-04] MEDS: methylPREDNISolone 125MG 2ML VIAL IV ONE (20:45)
[2024-08-04] MEDS: SUCRALFATE 1 GM TAB PO SCH (20:55)
[2024-08-04] MEDS: NS 0.45% 1,000 ML IV ONE (20:56)
[2024-08-04] MEDS: ACETAMINOPHEN 325 MG TAB PO PRN (20:56)
[2024-08-04] MEDS ORDERED: guaiFENesin ER TABLET 600 MG TAB PO SCH (21:00)
[2024-08-04] MEDS: ONDANSETRON 4MG 2ML VIAL IV PRN (21:06)
[2024-08-04] MEDS ORDERED: methylPREDNISolone 40MG 1ML VIAL IV SCH (22:00)
[2024-08-05] MEDS: SALIVA SUBSTITUTE(MOUTHKOTE) BTL MT SCH
[2024-08-05] MEDS: methylPREDNISolone 40MG 1ML VIAL IV SCH (04:38)
[2024-08-05] MEDS: FLUCONAZOLE 100 MG TAB PO SCH (09:36)
[2024-08-05] MEDS ORDERED: PROHANCE 279.3MG/ML 5ML VIAL As Ordered ONE (10:08)
[2024-08-05] MEDS ORDERED: LORazepam 2 MG/ML 1ML VIAL IV PRN (19:00)
[2024-08-05] MEDS ORDERED: DEXA10VI7 IV (19:41)
[2024-08-05] MEDS ORDERED: DOXY100T PO (19:51)
[2024-08-05] MEDS: dexAMETHasone 20MG/5ML VIAL IV SCH (20:23)
[2024-08-05] MEDS ORDERED: FLUC100T3 PO (20:49)
[2024-08-05] MEDS ORDERED: IPRA0.00 NEB (20:49)
[2024-08-05] MEDS ORDERED: MUCI600T31 PO (20:49)
[2024-08-05] MEDS ORDERED: ACET20%4ML INH (20:49)
[2024-08-05] MEDS ORDERED: LACT20EL PO (20:49)
[2024-08-05] MEDS ORDERED: SENN-52 PO (20:49)
[2024-08-05] MEDS ORDERED: SUCR1TA PO (20:49)
[2024-08-05] MEDS ORDERED: NYST-38 SS (20:49)
[2024-08-05] MEDS ORDERED: PANT40TA29 PO (20:49)
[2024-08-05] MEDS ORDERED: dexAMETHasone 20MG/5ML VIAL IV SCH (23:00)
[2024-08-06 14:26] VITALS: BP 121/80; TEMP 98.5; O2SAT 94
[2024-08-09 16:43] LABS: MYCOPLASMA PNEUMONIAE IGG 2.65 (<=0.90)
[2024-08-09 17:37] LABS: URINE STREP PNEUMONIAE ANTIGEN NOT DETECTED (NOT DETECT)
== END 2024-08-06 14:46 | disposition home or self-care (01) | DRG 52 ==
LOC: M ED 12:59 → M ED INP 08-04 13:00 → OBSVTOIN 08-04 16:23 → M ED INP 08-06 14:30
PROVIDERS: ADMIT General Practice; ATTEND General Practice
DX: G93.6 Cerebral edema (principal); R64 Cachexia; C79.31 Secondary malignant neoplasm of brain; C79.51 Secondary malignant neoplasm of bone; B37.0 Candidal stomatitis; E46 Unspecified protein-calorie malnutrition; C34.12 Malignant neoplasm of upper lobe, left bronchus or lung; J44.1 Chronic obstructive pulmonary disease with (acute) exacerbation; R62.7 Adult failure to thrive; G43.909 Migraine, unspecified, not intractable, without status migrainosus; F32.A Depression, unspecified; J45.909 Unspecified asthma, uncomplicated; K21.9 Gastro-esophageal reflux disease without esophagitis; E86.0 Dehydration; K20.80 Other esophagitis without bleeding; K29.70 Gastritis, unspecified, without bleeding; K59.00 Constipation, unspecified; Z79.891 Long term (current) use of opiate analgesic; Z79.899 Other long term (current) drug therapy; Z92.3 Personal history of irradiation; Z92.21 Personal history of antineoplastic chemotherapy; Z85.828 Personal history of other malignant neoplasm of skin; Z87.891 Personal history of nicotine dependence

== ENCOUNTER → 2024-08-24 | Outpatient (RCR) | payer BC ==
[~2024-08-24] MED LIST changes: +ACET20%4ML INH; +DEXA10VI7 IV; +DOXY100T PO; +FLUC100T3 PO; +IPRA0.00 NEB; +LACT20EL PO; +MUCI600T31 PO; +NYST-38 SS; +PRED50TA PO; +SENN-52 PO; +SUCR1TA PO; +TRIA1CR80 TOP; +[UNRECOGNIZED DRUG - CODE] PO
== END ==
LOC: M ONCR 08-13 13:58
PROVIDERS: ATTEND General Practice
DX: Z51.0 Encounter for antineoplastic radiation therapy (principal); C72.0 Malignant neoplasm of spinal cord

== ENCOUNTER 2024-08-28 12:58 | Outpatient (RCR) | payer BC ==
[2024-09-11] MEDS ORDERED: OXYC20TA40 PO (14:00)
[2024-09-11] MEDS ORDERED: OXYC10TA12 PO (14:00)
== END 2024-09-21 ==
LOC: M ONCR 12:58
PROVIDERS: ATTEND General Practice
DX: Z51.0 Encounter for antineoplastic radiation therapy (principal); C72.0 Malignant neoplasm of spinal cord

== ENCOUNTER → 2024-10-15 | Outpatient (CLI) | payer BC ==
[~2024-10-15] VITALS: Ht 152.4 cm; Wt 36.4 kg
[~2024-10-15] MED LIST changes: +ZITHTAB PO
[2024-10-15 14:43] VITALS: BP 120/62; O2SAT 97
== END ==
LOC: M PAL 14:29
PROVIDERS: ATTEND Physician Assistant
DX: Z51.5 Encounter for palliative care (principal); C34.90 Malignant neoplasm of unspecified part of unspecified bronchus or lung; C79.31 Secondary malignant neoplasm of brain; Z92.3 Personal history of irradiation; Z79.891 Long term (current) use of opiate analgesic; Z92.21 Personal history of antineoplastic chemotherapy; Z79.899 Other long term (current) drug therapy

== ENCOUNTER → 2024-10-25 | Outpatient (CLI) | payer BC ==
[~2024-10-25] MED LIST changes: +PROHANCE 279.3MG/ML 5ML VIAL As Ordered ONE
== END ==
LOC: M RAD 14:48
PROVIDERS: ATTEND General Practice
DX: C79.31 Secondary malignant neoplasm of brain (principal); G95.0 Syringomyelia and syringobulbia
CPT/HCPCS: 70553; 72156; A9576

== ENCOUNTER → 2024-11-05 | Outpatient (CLI) | payer BC ==
[~2024-11-05] MED LIST changes: +ISOVUE-370 76% 100ML VIAL As Ordered ONE; -PROHANCE 279.3MG/ML 5ML VIAL As Ordered ONE
== END ==
LOC: M RAD 12:54
PROVIDERS: ATTEND Internal Medicine Hematology & Oncology
DX: C34.90 Malignant neoplasm of unspecified part of unspecified bronchus or lung (principal); I70.0 Atherosclerosis of aorta; K57.30 Diverticulosis of large intestine without perforation or abscess without bleeding; J43.2 Centrilobular emphysema
CPT/HCPCS: 71260; 74177; Q9967

== ENCOUNTER → 2024-11-20 | Outpatient (CLI) | payer BC ==
[~2024-11-20] MED LIST changes: -BUPR-597 PO; +BUPR-766 PO; -CLOT10TR PO; +CLOT10TR11 PO; -ISOVUE-370 76% 100ML VIAL As Ordered ONE; -PRED50TA PO; +PRED50TA57 PO; +PROHANCE 279.3MG/ML 5ML VIAL ONE
== END ==
LOC: M PLAIMG 12:55
PROVIDERS: ATTEND Internal Medicine Medical Oncology
DX: C34.90 Malignant neoplasm of unspecified part of unspecified bronchus or lung (principal); M40.204 Unspecified kyphosis, thoracic region
CPT/HCPCS: 72157; A9576

== ENCOUNTER → 2025-01-28 | Outpatient (CLI) | payer BC ==
[~2025-01-28] MED LIST changes: +AZIT-12 PO; -ESSE250T PO; +ISOVUE-370 76% 100 ML VIAL As Ordered ONE; +MAGN250T17 PO; -PROHANCE 279.3MG/ML 5ML VIAL ONE
== END ==
LOC: M RAD 09:40
PROVIDERS: ATTEND Internal Medicine Medical Oncology
DX: C34.12 Malignant neoplasm of upper lobe, left bronchus or lung (principal); J47.9 Bronchiectasis, uncomplicated; J44.9 Chronic obstructive pulmonary disease, unspecified
CPT/HCPCS: 71260; 74177; Q9967

== ENCOUNTER 2025-02-05 12:42 | Outpatient (RCR) | payer BC ==
[~2025-02-05 12:42] MED LIST changes: -ISOVUE-370 76% 100 ML VIAL As Ordered ONE
[2025-02-12] MEDS ORDERED: ONDA-282 PO (10:26)
== END 2025-02-21 ==
LOC: M PT 12:42
PROVIDERS: ATTEND Internal Medicine Medical Oncology
DX: M79.602 Pain in left arm (principal)

== ENCOUNTER → 2025-02-12 | Outpatient (CLI) | payer BC ==
[~2025-02-12] VITALS: Ht 152.4 cm; Wt 37.8 kg
[2025-02-12 10:23] VITALS: BP 95/66; O2SAT 95
== END ==
LOC: M PAL 09:59
PROVIDERS: ATTEND Physician Assistant
DX: Z51.5 Encounter for palliative care (principal); C34.90 Malignant neoplasm of unspecified part of unspecified bronchus or lung; C79.31 Secondary malignant neoplasm of brain; C79.51 Secondary malignant neoplasm of bone; Z92.3 Personal history of irradiation; Z92.25 Personal history of immunosuppression therapy; Z79.891 Long term (current) use of opiate analgesic; Z79.899 Other long term (current) drug therapy; Z79.52 Long term (current) use of systemic steroids

== ENCOUNTER 2025-02-26 12:42 | Outpatient (RCR) | payer BC ==
[2025-02-27] MEDS ORDERED: TREL1AER PO (15:15)
[2025-02-27] MEDS ORDERED: OXYC10TA12 PO (15:17)
[2025-03-18] MEDS ORDERED: COMBAER6 INH (16:53)
== END 2025-03-24 ==
LOC: M PT 12:42
PROVIDERS: ATTEND Internal Medicine Medical Oncology
DX: M79.89 Other specified soft tissue disorders (principal); Z85.118 Personal history of other malignant neoplasm of bronchus and lung

== ENCOUNTER → 2025-02-27 | Outpatient (CLI) | payer BC ==
[~2025-02-27] MED LIST changes: +TREL1AER PO
== END ==
LOC: M ONCR 14:38
PROVIDERS: ATTEND General Practice
DX: C79.31 Secondary malignant neoplasm of brain (principal); C34.12 Malignant neoplasm of upper lobe, left bronchus or lung; F17.218 Nicotine dependence, cigarettes, with other nicotine-induced disorders; Z92.21 Personal history of antineoplastic chemotherapy; Z92.3 Personal history of irradiation; Z79.51 Long term (current) use of inhaled steroids; Z79.899 Other long term (current) drug therapy

== ENCOUNTER → 2025-05-06 | Outpatient (CLI) | payer BC ==
[~2025-05-06] MED LIST changes: +COMBAER6 INH; +ISOVUE-370 76% 100 ML VIAL ONE; +TOBR5DRO6 OU; -TOBRSUS39 OU
== END ==
LOC: M PLAIMG 08:29
DX: C34.90 Malignant neoplasm of unspecified part of unspecified bronchus or lung (principal)

== ENCOUNTER → 2025-05-15 | Outpatient (CLI) | payer BC ==
[~2025-05-15] VITALS: Ht 165.1 cm; Wt 37.6 kg
[~2025-05-15] MED LIST changes: -ISOVUE-370 76% 100 ML VIAL ONE
[2025-05-15 15:03] VITALS: BP 98/65; O2SAT 97
== END ==
LOC: M PAL 14:52
PROVIDERS: ATTEND Physician Assistant
DX: Z51.5 Encounter for palliative care (principal); C34.90 Malignant neoplasm of unspecified part of unspecified bronchus or lung; C79.31 Secondary malignant neoplasm of brain; Z79.891 Long term (current) use of opiate analgesic; Z79.899 Other long term (current) drug therapy; Z79.52 Long term (current) use of systemic steroids; Z92.3 Personal history of irradiation

== ENCOUNTER → 2025-05-30 | Outpatient (CLI) | payer BC ==
[~2025-05-30] MED LIST changes: +PROHANCE 279.3MG/ML 15ML VIAL As Ordered ONE
== END ==
LOC: M RAD 14:34
PROVIDERS: ATTEND General Practice
DX: C72.1 Malignant neoplasm of cauda equina (principal); C79.31 Secondary malignant neoplasm of brain

== ENCOUNTER → 2025-06-06 | Outpatient (CLI) | payer BC ==
[~2025-06-06] MED LIST changes: -PROHANCE 279.3MG/ML 15ML VIAL As Ordered ONE
== END ==
LOC: M ONCR 10:07
PROVIDERS: ATTEND Radiology Radiation Oncology
DX: Z08 Encounter for follow-up examination after completed treatment for malignant neoplasm (principal); Z85.118 Personal history of other malignant neoplasm of bronchus and lung; Z85.841 Personal history of malignant neoplasm of brain; F17.218 Nicotine dependence, cigarettes, with other nicotine-induced disorders; Z92.21 Personal history of antineoplastic chemotherapy; Z92.3 Personal history of irradiation; Z79.51 Long term (current) use of inhaled steroids; Z79.899 Other long term (current) drug therapy